=== PATIENT | female | born 1950 | race Asian ===

== ENCOUNTER 2016-09-09 07:06 | Day surgery (SDC) | payer MEDICARE, OTHER ==
[~2016-09-09 07:06] MED LIST: KETOROLAC TROMETHAMINE 0.45% 4 DROP/0.4 ML DROPERETTE OS PRN
[2016-09-09] MEDS ORDERED: LIDOCAINE 1% INJ-PF (10 MG/ML) 30 ML SDV ONE (07:26)
[2016-09-09] MEDS ORDERED: EPINEPHRINE INJ/PF 1 MG/1 ML AMPULE ONE (07:26)
[2016-09-09] MEDS ORDERED: CHONDR SU A NA/HYALUR INTRAOC KIT (SURGICARE) ONE (07:26)
[2016-09-09] MEDS: BESIFLOXACIN HCL 0.6% OPH SUSP 5 ML BOTTLE OS PRN ×4 (07:58→09:01)
[2016-09-09] MEDS: TETRACAINE HCL 0.5% OPH SOLN 2 ML OS PRN ×3 (07:58→08:37)
[2016-09-09] MEDS: CYCLOPENTOLATE 0.2%/PHENYLEPHRINE 1% OPH SOLN 2 ML OS PRN ×3 (07:58→08:13)
[2016-09-09] MEDS: TROPICAMIDE 1% OPH SOLN 3 ML OS PRN ×3 (07:58→08:13)
[2016-09-09] MEDS ORDERED: MIDAZOLAM 2 MG/2 ML INJ ONE (08:37)
--- NOTE | 2016-09-09 19:53 | [facility] OPERATIVE REPORT E ---
[facility] Operative Report NAME: YASMIN MCDANIEL AGE: 65Y DATE OF SURGERY: 09/09/2016 ROOM: PREOPERATIVE DIAGNOSIS: CATARACT, LEFT EYE. POSTOPERATIVE DIAGNOSIS: CATARACT, LEFT EYE. OPERATION: Cataract extraction with intraocular lens implant of the left eye. SURGEON: VIN BACK M.D. ANESTHESIA: Topical. PROCEDURE: After obtaining appropriate consent, the patient's left eye was prepped and draped in sterile fashion as well as the surgeon in a sterile manner and cataract surgery was started. First a paracentesis blade was used to make a small side-port incision. Viscoelastic was used to inflate the anterior chamber. Next a 2.4 mm incision was made with the paracentesis blade. A continuous capsulorrhexis incision was made using a cystotome and Utrata forceps. Following this hydrodissection was carried out to make the lens fully loose and mobile and it was rotated 90 degrees. Following this, a zdmgrc-wkg-qyajwej technique was used to phacoemulsify the lens with a CDE of 6.89. The remaining cortex was removed with irrigation/aspiration. Provisc was instilled into the capsular bag to inflate the bag. A SN60WF, 24.0 diopter lens was placed. The remaining viscoelastic material was removed with irrigation/aspiration. Following this, a 10-0 nylon suture was used to close the incision and it was found to be watertight. Vigamox was instilled in the eye and a protective shield was placed over the eye. The patient returned to the postoperative recovery in stable condition. DICTATING PHYSICIAN: VIN BACK M.D. [id number] 1945 PHY#: [id number] ID: [id number] JOB#: [id number] ACCT: [id number] cc:VIN BACK M.D. >
--- NOTE | 2016-09-09 19:54 | DISCHARGE SUMMARY E ---
Discharge Summary NAME: YASMIN MCDANIEL : 1950 AGE: 65Y ADMITTED: 09/09/2016 DISCHARGED: HOSPITAL COURSE: This is a 65-year-old female who underwent cataract extraction of the left eye. DIAGNOSIS: CATARACT, LEFT EYE. She underwent surgery because she was having difficulty driving at night secondary to glare. DISCHARGE INSTRUCTIONS: 1. She is to be on a regular diet. 2. No bending at the waist. 3. No heavy lifting. 4. She is to use Besivance, Ilevro, and Durezol at 3 p.m. and 8 p.m. 5. She is to sleep with a rigid shield. 6. I will see her for her 1-day postoperative tomorrow. DICTATING PHYSICIAN: VIN BACK M.D. [id number] 1946 PHY#: [id number] 1934 ID: [id number] JOB#: [id number] ACCT: [id number] cc:VIN BACK M.D. >
== END 2016-09-09 09:48 | disposition home or self-care (01) ==
LOC: SC 07:06
PROVIDERS: ATTEND Internal Medicine
PROC: 08RK3JZ Replacement of Left Lens with Synthetic Substitute, Percutaneous Approach (ICD-10-PCS; principal; 2016-09-09 08:30)
DX: H25.13 Age-related nuclear cataract, bilateral (principal); E11.9 Type 2 diabetes mellitus without complications; I10 Essential (primary) hypertension; E07.9 Disorder of thyroid, unspecified; M10.9 Gout, unspecified; Z79.899 Other long term (current) drug therapy; Z79.84 Long term (current) use of oral hypoglycemic drugs; Z88.2 Allergy status to sulfonamides
CPT/HCPCS: 66984; 82962; V2632; J2250; J3490 ×2; A9270; J0171; 142

== ENCOUNTER 2016-10-07 06:30 | Day surgery (SDC) | payer MEDICARE, OTHER ==
[2016-10-07] MEDS: TROPICAMIDE 1% OPH SOLN 3 ML OD PRN ×3 (06:52→07:20)
[2016-10-07] MEDS: CYCLOPENTOLATE 0.2%/PHENYLEPHRINE 1% OPH SOLN 2 ML OD PRN ×3 (06:53→07:20)
[2016-10-07] MEDS: KETOROLAC TROMETHAMINE 0.45% 4 DROP/0.4 ML DROPERETTE OD PRN ×2 (06:54→08:23)
[2016-10-07] MEDS: BESIFLOXACIN HCL 0.6% OPH SUSP 5 ML BOTTLE OD PRN ×4 (06:54→08:03)
[2016-10-07] MEDS: TETRACAINE HCL 0.5% OPH SOLN 2 ML OD PRN ×3 (06:54→07:34)
[2016-10-07] MEDS ORDERED: LIDOCAINE 1% INJ-PF (10 MG/ML) 30 ML SDV ONE (07:10)
[2016-10-07] MEDS ORDERED: EPINEPHRINE INJ/PF 1 MG/1 ML AMPULE ONE (07:10)
[2016-10-07] MEDS ORDERED: MIDAZOLAM 2 MG/2 ML INJ ONE (07:22)
[2016-10-07] MEDS ORDERED: FENTANYL CITRATE INJ/PF 100 MCG/2 ML AMPUL ONE (07:24)
[2016-10-07] MEDS: CHONDR SU A NA/HYALUR INTRAOC KIT (SURGICARE) ONE ×2 (07:57)
--- NOTE | 2016-10-07 20:03 | DISCHARGE SUMMARY E ---
Discharge Summary NAME: YASMIN MCDANIEL : 1950 AGE: 66Y ADMITTED: 10/07/2016 DISCHARGED: 10/07/2016 This is a 66-year-old male who underwent cataract extraction of the right eye. DIAGNOSIS: Cataract, right eye. He underwent surgery because he was having difficulty seeing road signs to see them clearly for driving. DISCHARGE INSTRUCTIONS: He is to be on a regular diet. No bending at his waist, no heavy lifting. He is to use Besivance, Ilevro, and Durezol at 3:00 p.m. and 8:00 p.m., and sleep with a rigid shield. I will see him for his one day postoperative tomorrow. DICTATING PHYSICIAN: VIN BACK M.D. [id number] 1957 PHY#: [id number] 1941 ID: [id number] JOB#: [id number] ACCT: [id number] cc:VIN BACK M.D. >
--- NOTE | 2016-10-07 20:04 | [facility] OPERATIVE REPORT E ---
[facility] Operative Report NAME: YASMIN MCDANIEL AGE: 66Y DATE OF SURGERY: 10/07/2016 ROOM: PREOPERATIVE DIAGNOSIS: CATARACT, RIGHT EYE. POSTOPERATIVE DIAGNOSIS: CATARACT, RIGHT EYE. OPERATION: Cataract extraction with intraocular lens implant of the right eye. SURGEON: VIN BACK M.D. ANESTHESIA: Topical. PROCEDURE: After obtaining appropriate consent, the patient's right eye was prepped and draped in sterile fashion as well as the surgeon in a sterile manner and cataract surgery was started. First a paracentesis blade was used to make a small side-port incision. Viscoelastic was used to inflate the anterior chamber. Next a 2.4 mm incision was made with the paracentesis blade. A continuous capsulorrhexis incision was made using a cystotome and Utrata forceps. Following this hydrodissection was carried out to make the lens fully loose and mobile and it was rotated 90 degrees. Following this, a ujgxzf-ksm-azwpseu technique was used to phacoemulsify the lens with a CDE of 8.83. The remaining cortex was removed with irrigation/aspiration. Provisc was instilled into the capsular bag to inflate the bag. A SN60WF, 21.5 diopter lens was placed. The remaining viscoelastic material was removed with irrigation/aspiration. Following this, a 10-0 nylon suture was used to close the incision and it was found to be watertight. Vigamox was instilled in the eye and a protective shield was placed over the eye. The patient returned to the postoperative recovery in stable condition. DICTATING PHYSICIAN: VIN BACK M.D. [id number] [id number] PHY#: [id number] 1941 ID: [id number] JOB#: [id number] ACCT: [id number] cc:VIN BACK M.D. >
== END 2016-10-07 08:47 | disposition home or self-care (01) ==
LOC: SC 06:30
PROVIDERS: ATTEND Internal Medicine
PROC: 08RJ3JZ Replacement of Right Lens with Synthetic Substitute, Percutaneous Approach (ICD-10-PCS; principal; 2016-10-07 07:30)
DX: H25.11 Age-related nuclear cataract, right eye (principal); Z96.1 Presence of intraocular lens; I10 Essential (primary) hypertension; E11.9 Type 2 diabetes mellitus without complications; E07.9 Disorder of thyroid, unspecified; Z79.84 Long term (current) use of oral hypoglycemic drugs; Z79.82 Long term (current) use of aspirin; Z88.2 Allergy status to sulfonamides; Z79.899 Other long term (current) drug therapy
CPT/HCPCS: 66984; 82962; V2632; J2250; J3490 ×2; A9270; J0171; J3010; 142